=== PATIENT | male | born 1940 ===

== ENCOUNTER 2022-05-03 17:33 | Emergency (ER) | payer MEDICARE, OTHER ==
[2022-05-03] MEDS ORDERED: Sodium Chloride 0.9% 1,000 ML IV ONE (17:58)
[2022-05-03] MEDS ORDERED: Sodium Chloride 0.9% 10 ML Syringe FLUSH PRN (17:58)
[2022-05-03 18:31] LABS: ANION GAP 11.3 mEq/L (7-13)
[2022-05-03] MEDS ORDERED: cefTRIAXone 1 GM in Sodium Chloride 0.9% 50 ML IV ONE (20:20)
[2022-05-03] MEDS ORDERED: Potassium Chloride 10 MEQ Tab.ER PO ONE (20:25)
== END 2022-05-03 21:14 | disposition home or self-care (01) ==
LOC: DL.ED 17:33
DX: N39.0 Urinary tract infection, site not specified (principal); Z88.2 Allergy status to sulfonamides; Z79.82 Long term (current) use of aspirin; Z87.891 Personal history of nicotine dependence
CPT/HCPCS: 36415; 80053; 81001; 85025; 87086; 87088; 87186; 96365; 99283; 99284-25; A9270-GY; J0696; J3490; J7030